=== PATIENT | male | born 1955 | race Caucasian/White ===

== ENCOUNTER → 2020-08-22 09:53 | Outpatient (CLI) | payer MEDICARE, BC ==
[2014-06-19 13:04] VITALS: BMI 32.3
[~2020-08-22 09:53] MED LIST: BAYER CHEWABLE81 MG PO; CELEXA10 MG PO; CIPRO500 MG PO; GLUCOPHAGE1000 MG PO; LODINE400 MG PO; LOFIBRA134 MG PO; MOBIC7.5 MG PO; NORCO 10/325 TA1 TA1 PO; PEPCID40 MG PO; PLAVIX75 MG PO; PRAVACHOL80 MG PO; TOPROL XL100 MG PO; TRANXENE T-TAB7.5 MG PO; ZESTORETIC 20/21 TAB PO
--- NOTE | 2020-08-22 11:02 | NUR ---
DIFFICUL NASAL INTUBATION WITH TIGHT NASO-PHARANGEAL AREA. PT. UNABLE TO TOLERATE MANOMETRY TUBE PLACEMENT STATES "TAKE IT OUT NOW". MANOMETRY TUBE REMOVE INTACT, SLIGHT NOSE BLEED NOTED. TISSUE OFFERED. PT. LEFT WITH @ SIDE.
== END | disposition home or self-care (01) ==
LOC: D.OPS 09:53
PROVIDERS: ATTEND Internal Medicine Gastroenterology
DX: R13.12 Dysphagia, oropharyngeal phase (principal); R11.2 Nausea with vomiting, unspecified; R63.4 Abnormal weight loss

== ENCOUNTER 2021-04-14 07:55 | Observation (INO) | payer MEDICARE, BC ==
[2021-04-09 12:44] LABS: BILIRUBIN NEGATIVE (NEGATIVE); KETONE NEGATIVE (NEGATIVE); NITRITE NEGATIVE (NEGATIVE); UROBILINOGEN NORMAL mg/dL (< 2)
[2021-04-09 13:21] LABS: BASOPHILS 1.1 % (0-2); CALC OSMOLALITY 274 mosm/kg (275-300); CALCIUM 9.4 mg/dL (8.5-10.1); CARBON DIOXIDE 31.1 mmol/L (21.0-32.0); CHLORIDE - SERUM 99 mmol/L (98-107); EOSINOPHILS 4.5 % (0-7); GLUCOSE 114 mg/dL (74-106); HEMATOCRIT 45.9 % (42.0-54.0); HEMOGLOBIN 15.3 g/dL (13.5-17.5); LYMPHOCYTES 19.7 % (15-50); MCH 28.5 pg (26.0-34.0); MCHC 33.5 g/dL (31.0-37.0); MCV 85.1 fL (80.0-100.0); MONOCYTES 10.6 % (2-11); NEUTROPHILS 64.1 % (40-80); PLATELET COUNT 240 10x3/uL (130-400); RBC 5.39 10x6/uL (4.20-6.10); RDW 14.6 % (11.5-14.5); SODIUM 136 mmol/L (136-145); UREA NITROGEN 17 mg/dL (7-18); WBC 7.1 10x3/uL (4.8-10.8); eGFR NON AFRICAN AMERICAN 79 mL/min (90-120)
[2021-04-09 13:29] LABS: INR 1.18 (0.85-1.17); PROTIME 13.9 SECONDS (11.6-15.0)
[2021-04-09 13:30] LABS: APTT 30.4 SECONDS (22.8-39.4)
[~2021-04-14] VITALS: Ht 175.3 cm; Wt 86.2 kg
[2021-04-14] VITALS (12 sets, daily range): BP systolic 90–125; BP diastolic 56–78; BMI 25.1; BMI 28.1
--- NOTE | ~2021-04-14 | OP ---
PATIENT NAME: LUZ MARIA RODRIGUEZ [place] BAYS MEDICAL RECORD: [id number] :51 LOCATION:DKen D.1209 ADMISSION DATE:04/14/21 SURGEON: ODALSY ALLISON MD DATE OF OPERATION: 04/14/2021 PREOPERATIVE DIAGNOSIS: Osteoarthritis, right knee. POSTOPERATIVE DIAGNOSIS: Osteoarthritis, right knee. PROCEDURE PERFORMED: Right total knee arthroplasty. INDICATIONS: Mr. Rodriguez is a 65-year-old male with history of right knee pain and arthritis. He has been dealing with the symptoms for some time now and they are getting progressively worse, beginning to affect his mobility. He has elected to proceed with surgery for right total knee arthroplasty. Risks, benefits, and alternatives of surgery were discussed with the patient and consent was obtained. DESCRIPTION OF PROCEDURE: The patient was met in the holding area where his identity and confirmation of procedure was performed. The right lower extremity was marked. He was taken to the operating room where he was placed supine on the operating table, and anesthesia was administered. A tourniquet was applied to the right leg and the right leg was prepped and draped in a sterile fashion. The patient received preoperative antibiotics as well as TXA and a timeout was performed before initiating the case. On the initiation of the case, the leg was exsanguinated and tourniquet was raised. Total tourniquet time was approximately 90 minutes. A medial parapatellar approach was utilized for exposure. Knee was placed into flexion. An incision was made over the anterior knee, dissected down to the extensor mechanism. Quad tendon was then incised along its medial border curving medially around the patella and extending down the medial border of the patellar tendon. The knee was then taken into extension. Tissue from the posterior fat pad of the patella and over the anterior distal femur was excised. A flap of tissue was elevated off the medial tibial plateau and a portion of the medial meniscus was excised. Patella was then everted. The knee was brought into flexion. The medial femoral condyle was worn down to the bone. Our Keysha's line was marked and the cruciate ligaments were excised. Retractors were placed medial and lateral. The femoral tunnel was then drilled and our intramedullary femoral guide was inserted for distal femur cut. Distal femoral cutting block was pinned into position and our distal femur cut was completed. Femur was then sized to a size 5. The 4-in-1 cutting block was placed and pinned into position. The anterior, posterior, and chamfer cuts were completed. Trial for a box cut was placed and adjusted for alignment. It was then pinned into place and our box cut was completed using a reciprocating saw and osteotome. We then turned our attention to the tibia. The PCL retractor was placed and the tibia was brought forward. The extramedullary tibial guide was placed and adjusted for alignment taking 4 mm off the medial tibial plateau. The cutting block was then pinned into position. We again verified the alignment. Our tibial cut was then completed. The bony pieces were removed. Osteophytes were removed from around the medial aspect of the tibial plateau. The femoral trial was then placed followed by the tibial plate. It was a trialed with a size 9 and then 11 tibial plate, at which point, we felt to have good fit and stability. We then turned our attention to the patella. The patella was everted and towel clips were placed at the superior and inferior poles. Caliper was used to assess the width of the patella. The patella was cut to the floor of the lateral facet. It was sized to a size 33 OPERATIVE REPORT [id number] LUZ MARIA RODRIGUEZ and drilled. The knee was again repositioned in flexion and the trial components were removed. The tibia was exposed and sized to a size 5. The tibial trial was pinned into position and prepared using a punch. Trial components were removed. Laminar well tester was inserted. Osteophytes were removed from the posterior aspect of the distal femur. Knee was then taken into extension and irrigated thoroughly with saline. Joint solution was injected around the capsule of the proximal tibia and the distal femur. The bony ends were then dried and the final components were cemented into place. Excess cement was removed throughout this process. The trial poly was placed and the knee was held in full extension while the cement was allowed to dry. The patella was held with the patellar clamp. Once the cement was dry, it was again taken through range of motion. With the size 11 poly had some slight laxity, we therefore went with a size 12 at which point was felt to have good fit and stability throughout range of motion. Final size 12 posterior stabilized poly was placed and tapped into position. It was again taken through range of motion, had good fit and stability. Knee was irrigated thoroughly with saline. A drain was placed in the lateral gutter. Extensor mechanism was closed with #1 Vicryl suture. The subcutaneous tissues were irrigated thoroughly with saline. These were then closed with 2-0 Vicryl and the skin was closed with paula. A sterile dressing was placed. The patient was turned back over to anesthesia where he was awakened and taken to the recovery room in stable condition. POSTOPERATIVE PLAN: The patient is going to be admitted for routine postoperative care. He will receive 24 hours of postoperative antibiotics, will be started on DVT prophylaxis tomorrow. Physical therapy will be consulted to assist with mobilization, weightbearing as tolerated, right lower extremity. PLAN: Home with home health. COMPLICATIONS: None. ESTIMATED BLOOD LOSS: 50 mL. ANESTHESIA: Spinal with peripheral nerve block. TRANSINT:[id number] Voice Confirmation ID: [id number] DOCUMENT ID: [id number] ODALYS ALLISON MD CC: [id number] DICTATION DATE: 04/14/21 1331 HAND DRAWER IN: 04/16/21 0029 DIS IN 04/15/21 [id number] [place] [address]
[~2021-04-14 07:55] MED LIST changes: +COLCRYS0.6 MG PO; +HYDROXYCHLOROQ200 MG PO; +LISINOPRIL-HCT1 EAC7 PO; +MYSOLINE 50 MG50 MG PO; +OMEPRAZOLE40 MG PO; +PROSCAR5 MG PO; +WELLBUTRIN XL150 M1 PO
--- NOTE | 2021-04-14 16:27 | NUR ---
SCD'S ON. VS WNL. VELASQUEZ IN ROOM. CL IN REACH. BED ALARM ON. NO NEEDS OR PAIN AT THIS TIME. STILL ALOT OF NUMBNESS. WCTM
--- NOTE | 2021-04-14 19:05 | NUR ---
PATIENT RESTING IN BED ON PHONE AND DENIES NEEDS AT THIS TIME. BED IN LOWEST POSITION AND CALL LIGHT IN REACH. IV INFUSING TO LEFT FA, NO REDNESS, SWELLING, OR PAIN NOTED. ENCOURAGED PATIENT TO CALL WITH NEEDS.
--- NOTE | 2021-04-14 20:57 | NUR ---
ADMINISTERED MEDS PER ORDERS. PATIENT ALEX WELL. ENCOURAGED TO CALL WITH NEEDS.
[2021-04-15 00:15] VITALS: BP 132/74
[2021-04-15 04:48] VITALS: BP 122/71
[2021-04-15 06:04] LABS: BASOPHILS 0.5 % (0-2); HEMATOCRIT 37.5 % (42.0-54.0); HEMOGLOBIN 12.7 g/dL (13.5-17.5); LYMPHOCYTES 10.4 % (15-50); MCHC 33.9 g/dL (31.0-37.0); MCV 85.6 fL (80.0-100.0); MEAN PLATELET VOLUME 8.4 fL (7.4-10.4); MONOCYTES 10.3 % (2-11); NEUTROPHILS 76.8 % (40-80); RBC 4.38 10x6/uL (4.20-6.10); RDW 14.4 % (11.5-14.5); WBC 8.1 10x3/uL (4.8-10.8)
[2021-04-15 06:23] LABS: PLATELET COUNT 163 10x3/uL (130-400)
[2021-04-15 06:37] LABS: ALBUMIN 2.8 g/dL (3.4-5.0); ANION GAP 12.7 mmol/L (8-16); BILIRUBIN - TOTAL 0.62 mg/dL (0.2-1.3); CALCIUM 7.7 mg/dL (8.5-10.1); CARBON DIOXIDE 26.2 mmol/L (21.0-32.0); CREATININE - SERUM 1.1 mg/dL (0.6-1.3); MAGNESIUM - SERUM 1.7 mg/dL (1.8-2.4); PHOSPHOROUS 3.5 mg/dL (2.5-4.9); POTASSIUM - SERUM 3.9 mmol/L (3.5-5.1); PROTEIN - SERUM 5.5 g/dL (6.4-8.2)
--- NOTE | 2021-04-15 07:37 | NUR ---
PT STATES HE IS NAUSEOUS. ZOFRAN ALREADY GIVEN. WILL PROVIDE MANISHA LEMON YAKUTAT AND SEE IF THAT WILL HELP OR WHAT OTHER MEDICATIONS I CAN GIVE. CL IN REACH. CPM ON. SCD'S/TEDS ON. VELASQUEZ IN ROOM. BED ALARM ON. WCTM
[2021-04-15 07:55] VITALS: BP 128/75
[2021-04-15 10:36] VITALS: Ht 175.3 cm; Wt 86.2 kg
[2021-04-15 11:53] VITALS: BP 130/67
--- NOTE | 2021-04-15 14:09 | MORECARE ---
CASE MANAGEMENT DISCHARGE SUMMARY PATIENT: LUZ MARIA RODRIGUEZ [place] UNIT: [id number] ADM DATE: 04/14/21 AGE: 65 : 53 SEX: M ROOM/BED: D.1209 AUTHOR: RONDA,DOC PHYSICIAN: REFERRING PHYSICIAN: ODALYS ALLISON MD DATE OF SERVICE: 04/15/21 Case Management Discharge Planning Summary COMMENTS ENTERED DATE: 04/15/21 14:06 CT COMMENT TYPE: Discharge Planning REVIEWER: Xavier Torres CM met with patient to complete DC plan and to evaluate needs. Patient lives independently with his spouse, Tatiana Rodriguez, . Patient stated that his home is safe and has electricity and running water. Patient stated that the home has 5 steps to enter and he is able to manage the steps without difficulty. Patient stated that he has no problems paying for medications and he fills his medications at [facility] [address]. Patient stated that his primary care physician is Dr. Jessica Spain. At discharge, the patient plans to return Home and feels this is a safe discharge. CM discussed availability of home health, rehab services, and medical equipment. Patient declined SNF and IPR, but would like to have Home Health Services through [facility] or [facility]. Patient would also like to have a walker through [employer]. CM spoke with Allison of [facility]. Allison stated that she will review DC summary and insurance and call CM back with SOC. Patient voiced no other needs at this time and is satisfied with DC plan. Transportation provider at discharge will be with his spouse, Tatiana. MUNIZ delivered, explained, however patient declined to sign the document. MUNIZ placed in chart. Copy of MUNIZ form also left with the patient. Signed form also left with the patient. CM will continue to follow and will assist as needed with dc plans/needs. DCP REVIEW SUMMARY ANTICIPATED D/C DATE: 04/15/2021 EXPECTED LOS : 1 CASE STATUS: DCP Initiated INITIAL REVIEW: 04/14/2021 INITIAL REVIEWER: Xavier Torres FINAL DISCHARGE DISPOSITION: : FINAL REVIEWER: FINAL REVIEW DATE: DCP Focus Questions & Answers DCP Evaluation QUESTION: ANSWER Patient and/or caregiver agree upon recommended discharge plan? : Yes Family / Caregiver's ability to cope with chronic illness: : a. Adequate (ability to meet patient's medical needs, ensures patient attends medical appts.) Patient's current cognitive status: : *Oriented to person, place, situation, time and present Patient's ability to cope with chronic illness : d. No chronic illness Patient gives permission to discuss discharge plans with: (name, relationship and number) : spouse, Tatiana Rodriguez, Does the patient have the ability to pay for or attain post discharge needs / services? : Yes Functional screen assessment: : Basic needs can adequately be met by self Family / Caregiver's ability to cope with chronic illness: : a. Adequate (ability to meet patient's medical needs, ensures patient attends medical appts.) Physical Status: : Independent with ADL's Equipment needed for post hospitalization: : Walker - Rolling Is there a likelihood that the patient will require additional services to return to the preadmission environment? : Yes Living Arrangements: : Home with Spouse/Significant Other Patient with capacity for self-care or can be cared for in same environment as prior to hospitalization? : Yes Baseline cognitive status: : *Oriented to person, place, situation, time and present Physical environment modification needed / anticipated for discharge: : No Medication Management: : Patient states can read and understand medication labels Medication Management: : Patient states can afford medications Pharmacy name(s): : [facility] [address] Does Patient have transportation to get home and to follow-up medical appointments when discharged from the hospital? : Yes Would patient like to participate in any Care Coordination programs (if applicable): : Not applicable Does the patient have electricity at home? : Yes Does the patient have running water in their house? : Yes Equipment in use: : None Mental health screen: : No mental health history DCP Re-evaluation QUESTION: ANSWER Would patient like to participate in any Care Coordination programs (if applicable): : Not applicable PATIENT: LUZ MARIA RODRIGUEZ ENCOUNTER: [id number] MEDICAL RECORD#: [id number] ADMISSION DATE: 04/14/2021 DISCHARGE DATE: ATTENDING MD: HOLLY: AGE: 65 MARITAL STATUS: M DC PLAN ID: [id number] FACILITY: [facility] PRINTED ON: 04/15/21 14:09 CT All edits/amendments must be made on the electronic document DICTATION DATE: 04/15/211408 SUPERVISOR STERILE PROCESSING: BERNY 04/15/211408 RPT#: [id number] DC DATE: STATUS: ADM IN [facility] [address] [place] [address] END OF REPORT
--- NOTE | 2021-04-15 17:20 | NUR ---
IV THERAPY REMOVED FROM LEFT FOREARM WITH TIP INTACT. DISCHARGE INSTRUCTIONS GIVEN. PT AND VERBALIZED UNDERSTANDING. WHEELED OUT BY TRANSPORT.
--- NOTE | 2021-04-15 17:26 | MORECARE ---
CASE MANAGEMENT DISCHARGE SUMMARY PATIENT: LUZ MARIA RODRIGUEZ [place] UNIT: [id number] ADM DATE: 04/14/21 AGE: 65 : 53 SEX: M ROOM/BED: D.1209 AUTHOR: RONDA,DOC PHYSICIAN: REFERRING PHYSICIAN: ODALYS ALLISON MD DATE OF SERVICE: 04/15/21 Case Management Discharge Planning Summary COMMENTS ENTERED DATE: 04/15/21 14:06 CT COMMENT TYPE: Discharge Planning REVIEWER: Xavier Torres CM met with patient to complete DC plan and to evaluate needs. Patient lives independently with his spouse, Tatiana Rodriguez, . Patient stated that his home is safe and has electricity and running water. Patient stated that the home has 5 steps to enter and he is able to manage the steps without difficulty. Patient stated that he has no problems paying for medications and he fills his medications at [facility] [address]. Patient stated that his primary care physician is Dr. Jessica Spain. At discharge, the patient plans to return Home and feels this is a safe discharge. CM discussed availability of home health, rehab services, and medical equipment. Patient declined SNF and IPR, but would like to have Home Health Services through [email or web address] or [employer] [facility] Patient would also like to have a walker through [employer]. CM spoke with Allison of [facility]. Allison stated that she will review DC summary and insurance and call CM back with SOC. Patient voiced no other needs at this time and is satisfied with DC plan. Transportation provider at discharge will be with his spouse, Tatiana. MUNIZ delivered, explained, however patient declined to sign the document. MUNIZ placed in chart. Copy of MUNIZ form also left with the patient. Signed form also left with the patient. CM will continue to follow and will assist as needed with dc plans/needs. DCP REVIEW SUMMARY ANTICIPATED D/C DATE: 04/15/2021 EXPECTED LOS : 1 CASE STATUS: DCP Initiated INITIAL REVIEW: 04/14/2021 INITIAL REVIEWER: Xavier Torres FINAL DISCHARGE DISPOSITION: : FINAL REVIEWER: FINAL REVIEW DATE: DCP Focus Questions & Answers DCP Evaluation QUESTION: ANSWER Patient and/or caregiver agree upon recommended discharge plan? : Yes Family / Caregiver's ability to cope with chronic illness: : a. Adequate (ability to meet patient's medical needs, ensures patient attends medical appts.) Patient's current cognitive status: : *Oriented to person, place, situation, time and present Patient's ability to cope with chronic illness : d. No chronic illness Patient gives permission to discuss discharge plans with: (name, relationship and number) : spouse, Tatiana Rodriguez, Does the patient have the ability to pay for or attain post discharge needs / services? : Yes Functional screen assessment: : Basic needs can adequately be met by self Family / Caregiver's ability to cope with chronic illness: : a. Adequate (ability to meet patient's medical needs, ensures patient attends medical appts.) Physical Status: : Independent with ADL's Equipment needed for post hospitalization: : Walker - Rolling Is there a likelihood that the patient will require additional services to return to the preadmission environment? : Yes Living Arrangements: : Home with Spouse/Significant Other Patient with capacity for self-care or can be cared for in same environment as prior to hospitalization? : Yes Baseline cognitive status: : *Oriented to person, place, situation, time and present Physical environment modification needed / anticipated for discharge: : No Medication Management: : Patient states can read and understand medication labels Medication Management: : Patient states can afford medications Pharmacy name(s): : [facility] [address] Does Patient have transportation to get home and to follow-up medical appointments when discharged from the hospital? : Yes Would patient like to participate in any Care Coordination programs (if applicable): : Not applicable Does the patient have electricity at home? : Yes Does the patient have running water in their house? : Yes Equipment in use: : None Mental health screen: : No mental health history DCP Re-evaluation QUESTION: ANSWER Would patient like to participate in any Care Coordination programs (if applicable): : Not applicable PATIENT: LUZ MARIA RODRIGUEZ ENCOUNTER: [id number] MEDICAL RECORD#: [id number] ADMISSION DATE: 04/14/2021 DISCHARGE DATE: 04/15/2021 ATTENDING MD: HOLLY: AGE: 65 MARITAL STATUS: M DC PLAN ID: [id number] FACILITY: [facility] PRINTED ON: 04/15/21 17:26 CT All edits/amendments must be made on the electronic document DICTATION DATE: 04/15/211725 SPECIAL EFFECTS MAKEUP ARTIST: BERNY 04/15/211725 RPT#: [id number] DC DATE:04/15/21 STATUS: DIS IN [facility] [address] [place] [address] END OF REPORT
== END 2021-04-15 17:21 | disposition home or self-care (01) ==
LOC: D.OPS 07:55 → OBSVTIME 13:45 → D.M3 13:45
PROVIDERS: Emergency Medicine; ADMIT Orthopaedic Surgery; ATTEND Orthopaedic Surgery
DX: M17.11 Unilateral primary osteoarthritis, right knee (principal); E11.40 Type 2 diabetes mellitus with diabetic neuropathy, unspecified; I25.2 Old myocardial infarction; Z79.84 Long term (current) use of oral hypoglycemic drugs; Z79.01 Long term (current) use of anticoagulants; N40.0 Benign prostatic hyperplasia without lower urinary tract symptoms; F32.9 Major depressive disorder, single episode, unspecified; M79.7 Fibromyalgia